=== PATIENT | female | born 1955 | race Asian ===

== ENCOUNTER 2018-06-05 08:57 | Emergency (ER) | payer MEDICAID ==
[~2018-06-05] VITALS: Ht 162.6 cm; Wt 60.0 kg
[2018-06-05 11:30] VITALS: BP 138/69
[2018-06-05] MEDS ORDERED: ACETAMINOPHEN 500MG TABLET PO ONE (11:30)
== END 2018-06-05 12:39 | disposition home or self-care (01) ==
LOC: ER 08:57
DX: R51 Headache (principal); M79.602 Pain in left arm; V43.52XA Car driver injured in collision with other type car in traffic accident, initial encounter; Y93.89 Activity, other specified; Y92.488 Other paved roadways as the place of occurrence of the external cause
CPT/HCPCS: 73060; 99284